=== PATIENT | female | born 1950 | race Caucasian/White ===

== ENCOUNTER 2018-02-05 08:39 | Outpatient (REF) | payer MEDICARE, BC, SELFPAY ==
[2018-02-05 12:58] LABS: ALT 22 U/L (12-78); AST 7 U/L (15-37); Albumin 3.7 g/dL (3.4-5.0); Alkaline Phosphatase 89 U/L (46-116); Bilirubin, Total 0.5 mg/dL (0.2-1.0); Cholesterol 151 mg/dL (50-200); HDL Cholesterol 59 mg/dL (40-60); LDL CHOLESTEROL 86 mg/dL (<100); Total Protein 6.5 g/dL (6.4-8.2); Triglyceride 49 mg/dL (30-150)
[2018-02-05 13:14] LABS: Bilirubin, Direct 0.12 mg/dL (0.00-0.20)
== END 2018-02-05 08:40 ==
LOC: NCHCN 08:39
PROVIDERS: Visit Provider Family Medicine
DX: E78.5 Hyperlipidemia, unspecified (principal)
CPT/HCPCS: 80061; 80076; 83721

== ENCOUNTER 2018-10-26 08:32 | Outpatient (REF) | payer MEDICARE, BC, SELFPAY ==
[2018-10-26 13:01] LABS: ALT 22 U/L (12-78); AST 9 U/L (15-37); Albumin 3.7 g/dL (3.4-5.0); Alkaline Phosphatase 87 U/L (46-116); Anion Gap 10.9 mmol/L (3-11); BUN 18 mg/dL (7-18); Bilirubin, Total 0.6 mg/dL (0.2-1.0); CO2 27.1 mmol/L (21.0-32.0); CREATININE 0.57 mg/dL (0.55-1.02); Calcium 8.8 mg/dL (8.5-10.1); Chloride 103 mmol/L (98-107); Cholesterol 147 mg/dL (50-200); Glucose 101 mg/dL (70-100); HDL Cholesterol 52 mg/dL (40-60); LDL CHOLESTEROL 82 mg/dL (<100); Potassium 4.4 mmol/L (3.5-5.1); Sodium 141 mmol/L (136-145); Total Protein 6.6 g/dL (6.4-8.2); Triglyceride 58 mg/dL (30-150)
== END 2018-10-26 08:52 ==
LOC: NCHCN 08:32
PROVIDERS: Visit Provider Family Medicine
DX: E78.5 Hyperlipidemia, unspecified (principal); I10 Essential (primary) hypertension
CPT/HCPCS: 80053; 80061; 83721

== ENCOUNTER 2018-11-03 09:59 | Outpatient (REF) | payer MEDICARE, BC, SELFPAY ==
--- NOTE | 2018-11-03 09:40 | PAPFT_PTH ---
PATIENT: Zoe Yuen LOC: [facility] U#:[id number] AGE/SX: 68/F ROOM: RE11/03/[address]: Theresa Herrera : 1950 BED: DIS: 11/03/2018 SPEC #: [id number] RECD: 11/03/18 12:57 STATUS: MARCO REBrittany #: [id number] TOBY: 11/03/18 09:[address]: Theresa Herrera DEPT: [facility] Cytology RECD BY: Sharri Walters ENTERED: 11/03/18 12:57 SP TYPE: PAPFT OTHR DR: Delfina Brown Tissues: 1 - CX/ENDOCX FOR PAP SMEARS Procedures: PAP THIN PREP/UVM Screening HPV DNA PROBE Comments: [id number]
== END 2018-11-03 10:19 ==
LOC: NCHCN 09:59
PROVIDERS: Visit Provider Family Medicine
DX: Z12.4 Encounter for screening for malignant neoplasm of cervix (principal); Z11.51 Encounter for screening for human papillomavirus (HPV)
CPT/HCPCS: 88142; 87624

== ENCOUNTER 2019-04-01 13:14 | Outpatient (REF) | payer MEDICARE, BC, SELFPAY ==
[2019-04-01 21:51] LABS: Anion Gap 8.4 mmol/L (3-11); BUN 19 mg/dL (7-18); CO2 27.6 mmol/L (21.0-32.0); CREATININE 0.71 mg/dL (0.55-1.02); Calcium 9.1 mg/dL (8.5-10.1); Chloride 105 mmol/L (98-107); Glucose 89 mg/dL (70-100); Potassium 4.7 mmol/L (3.5-5.1); Sodium 141 mmol/L (136-145); TSH (W/Ref FT4) 0.27 uIU/mL (0.36-3.74)
[2019-04-01 23:02] LABS: FREE T4 1.57 ng/dL (0.76-1.46); Vitamin B12 < 80 pg/mL (193-986)
== END 2019-04-01 13:34 ==
LOC: NCHCN 13:14
PROVIDERS: PCP Internal Medicine; Visit Provider Internal Medicine
DX: E03.9 Hypothyroidism, unspecified (principal); I10 Essential (primary) hypertension; K14.0 Glossitis; J45.20 Mild intermittent asthma, uncomplicated
CPT/HCPCS: 80048; 82607; 84439; 84443

== ENCOUNTER 2019-05-17 21:47 | Outpatient (REF) | payer MEDICARE, BC, SELFPAY ==
[2019-05-17 22:26] LABS: T4 12.9 ug/mL (4.7-13.3); TSH 0.66 uIU/mL (0.36-3.74); Vitamin B12 276 pg/mL (193-986)
== END 2019-05-17 22:07 ==
LOC: NCHCN 21:47
PROVIDERS: PCP Internal Medicine; Visit Provider Internal Medicine
DX: E53.8 Deficiency of other specified B group vitamins (principal); E03.9 Hypothyroidism, unspecified
CPT/HCPCS: 82607; 84436; 84443

== ENCOUNTER → 2019-05-23 09:45 | Outpatient (BNVA) | payer MEDICARE, BC, SELFPAY | PROVIDERS: PCP Internal Medicine; Referring Provider Internal Medicine; Visit Provider Surgery | DX: L57.0 Actinic keratosis (principal); I10 Essential (primary) hypertension | CPT/HCPCS: 11311; 99201; 99212 ==

== ENCOUNTER 2019-05-23 10:53 | Outpatient (REF) | payer MEDICARE, BC, SELFPAY ==
--- NOTE | 2019-05-23 10:10 | SKI_PTH ---
PATIENT: Zoe Yuen LOC: [facility] U#:[id number] AGE/SX: 68/F ROOM: RE05/23/[address]: Nasima Strong MD : 1950 BED: DIS: 05/23/2019 SPEC #: [id number] RECD: 05/23/19 12:41 STATUS: MARCO REBrittany #: [id number] TOBY: 05/23/19 10:[address]: Nasima Strong DEPT: Surgical Specimen RECD BY: Sharri Walters ENTERED: 05/23/19 12:42 SP TYPE: PAR[place] RED DR: Sai Plunkett Tissues: 1 - SKIN BIOPSY(SHAVE/PUNCH) Procedures: SKIN LEVEL 4 Comments: [id number]
== END 2019-05-23 11:13 ==
LOC: LBN 10:53
PROVIDERS: PCP Internal Medicine; Visit Provider Surgery
DX: L57.0 Actinic keratosis (principal); L82.1 Other seborrheic keratosis
CPT/HCPCS: 88305

== ENCOUNTER 2019-11-09 11:57 | Outpatient (REF) | payer MEDICARE, BC, SELFPAY ==
--- NOTE | 2019-11-09 10:00 | PAPFT_PTH ---
PATIENT: Zoe Yuen LOC: [facility]#:[id number] AGE/SX: 69/F ROOM: RE11/09/[address]: Delfina Brown : 1950 BED: DIS: 11/09/2019 SPEC #: [id number] RECD: 11/10/19 13:14 STATUS: MARCO REBrittany #: [id number] TOBY: 11/09/19 10:[address]: Delfina Brown DEPT: [facility] Cytology RECD BY: Sharri Walters ENTERED: 11/10/19 13:14 SP TYPE: PAPFT OTHR DR: Sai Plunkett Tissues: 1 - CX/ENDOCX FOR PAP SMEARS Procedures: PAP THIN PREP/UVM Screening HPV DNA PROBE Comments: [id number]
[2019-11-09 22:11] LABS: Anion Gap 5.6 mmol/L (3-11); BUN 17 mg/dL (7-18); CO2 30.4 mmol/L (21.0-32.0); CREATININE 0.74 mg/dL (0.55-1.02); Calcium 9.4 mg/dL (8.5-10.1); Calculated LDL 80 mg/dL (<100); Chloride 104 mmol/L (98-107); Cholesterol 150 mg/dL (<200); Glucose 97 mg/dL (74-106); HDL Cholesterol 54 mg/dL (40-60); Potassium 4.7 mmol/L (3.5-5.1); Sodium 140 mmol/L (136-145); TSH (W/Ref FT4) 0.67 uIU/mL (0.36-3.74); Triglyceride 82 mg/dL (<150); Vitamin B12 294 pg/mL (193-986)
== END 2019-11-09 12:17 ==
LOC: NCHCN 11:57
PROVIDERS: PCP Internal Medicine
DX: I10 Essential (primary) hypertension (principal); E03.9 Hypothyroidism, unspecified; E78.5 Hyperlipidemia, unspecified; E53.8 Deficiency of other specified B group vitamins; Z12.4 Encounter for screening for malignant neoplasm of cervix; Z11.51 Encounter for screening for human papillomavirus (HPV)
CPT/HCPCS: 80048; 80061; 88142; 82607; 84443; 87624

== ENCOUNTER 2019-11-29 00:38 | Outpatient (CLI) | payer MEDICARE, BC, SELFPAY ==
--- NOTE | 2019-11-29 12:45 | DI.MAMMO_ITS ---
EXAM: MG MAMMO SCREENING CLINICAL HISTORY: SCREENING, Z12.31 TECHNIQUE: Mammograms were interpreted according to the usual protocol including computer analysis w [employer] CAD system, tomosynthesis and C-view imaging. COMPARISON: FINDINGS: The breasts are of moderate density with fairly symmetrical distribution of fibroglandular tissue. N o dominant mass or clumped microcalcification is identified in either breast. The current examinatio n is compared with previous examinations including November 2017 and there has been no gross interval yanet nge in appearance in comparison with the prior studies. IMPRESSION: No specific evidence of malignancy at this time. Routine screening examinations are suggested at yea rly intervals in this age group according to the ACS ACR guidelines. BI-RADS Cat 1 - Negative: Breast Density - Category B - Scattered areas of fibroglandular density
== END 2019-11-29 00:58 ==
PROVIDERS: PCP Internal Medicine
DX: Z12.31 Encounter for screening mammogram for malignant neoplasm of breast (principal)
CPT/HCPCS: 77063; 77067

== ENCOUNTER 2020-11-07 09:33 | Outpatient (REF) | payer MEDICARE, BC, SELFPAY ==
--- NOTE | 2020-11-07 09:20 | PAPFT_PTH ---
PATIENT: Zoe Yuen LOC: [facility]#:[id number] AGE/SX: 70/F ROOM: RE11/07/[address]: Delfina Brown : 1950 BED: DIS: 11/07/2020 SPEC #: [id number] RECD: 11/07/20 12:51 STATUS: MARCO COOLEY #: [id number] TOBY: 11/07/20 09:[address]: Delfina Brown DEPT: [facility] Cytology RECD BY: Sharri Walters ENTERED: 11/07/20 12:52 SP TYPE: PAPFT OTHR DR: Sai Plunkett Tissues: 1 - CX/ENDOCX FOR PAP SMEARS Procedures: PAP THIN PREP/UVM Screening HPV DNA PROBE Comments: [id number]
== END 2020-11-07 09:34 | disposition home or self-care (01) ==
LOC: NCHCN 09:33
PROVIDERS: PCP Internal Medicine
DX: Z12.4 Encounter for screening for malignant neoplasm of cervix (principal); Z01.419 Encounter for gynecological examination (general) (routine) without abnormal findings; Z87.42 Personal history of other diseases of the female genital tract; Z11.51 Encounter for screening for human papillomavirus (HPV); R87.810 Cervical high risk human papillomavirus (HPV) DNA test positive
CPT/HCPCS: 88142; 87624

== ENCOUNTER 2020-11-09 09:43 | Outpatient (REF) | payer MEDICARE, BC, SELFPAY ==
[2020-11-09 13:43] LABS: Anion Gap 9.5 mmol/L (3-11); BUN 23 mg/dL (7-18); CO2 26.5 mmol/L (21.0-32.0); CREATININE 0.7 mg/dL (0.55-1.02); Calcium 9.3 mg/dL (8.5-10.1); Calculated LDL 84 mg/dL (<100); Chloride 105 mmol/L (98-107); Cholesterol 158 mg/dL (<200); Glucose 106 mg/dL (74-106); HDL Cholesterol 63 mg/dL (40-60); Potassium 4.8 mmol/L (3.5-5.1); Sodium 141 mmol/L (136-145); TSH (W/Ref FT4) 0.13 uIU/mL (0.36-3.74); Triglyceride 55 mg/dL (<150); Vitamin B12 477 pg/mL (193-986)
== END 2020-11-09 09:44 | disposition home or self-care (01) ==
LOC: NCHCN 09:43
PROVIDERS: PCP Internal Medicine
DX: E53.8 Deficiency of other specified B group vitamins (principal); I10 Essential (primary) hypertension
CPT/HCPCS: 80048; 80061; 82607; 84439; 84443

== ENCOUNTER 2020-11-30 04:18 | Outpatient (CLI) | payer MEDICARE, BC, SELFPAY ==
--- NOTE | 2020-11-30 | DI.MAMMO_ITS ---
Exam(s) MAMMO SCREENING EXAM: MAMMO SCREENING CLINICAL HISTORY: SCREENING, Z12.31 TECHNIQUE: Mammograms were interpreted according to the usual protocol including computer analysis w [employer] CAD system, tomosynthesis and C-view imaging. COMPARISON: 2011 through 2019 FINDINGS: The breasts are composed of scattered fibroglandular densities, Breast Density category B. No suspicious masses or suspicious microcalcifications are seen. No skin thickening or abnormal axillary lymph nodes are seen. There has been no significant change from prior exams. IMPRESSION: BI-RADS Category 1, Negative mammogram Yearly screening mammography is recommended. Breast Density - Category B, scattered fibroglandular densities. A negative radiographic report should not delay biopsy if a dominant or clinically suspicious mass is present. Up to ten percent of cancers are not identified on mammography. A negative report may reinforce clinical impression. Adenosis and dense breasts may obscure an underlying neoplasm. False positive reports average 6 to 10%. Patient will receive a letter notifying them of these results.
== END 2020-11-30 04:38 ==
PROVIDERS: PCP Internal Medicine
DX: Z12.31 Encounter for screening mammogram for malignant neoplasm of breast (principal); R92.8 Other abnormal and inconclusive findings on diagnostic imaging of breast
CPT/HCPCS: 77063; 77067

== ENCOUNTER 2020-12-17 15:10 | Outpatient (REF) | payer MEDICARE, BC, SELFPAY ==
--- NOTE | 2020-12-17 14:15 | ENDO_PTH ---
PATIENT: Zoe Yuen LOC: [facility] U#:[id number] AGE/SX: 70/F ROOM: RE12/17/[address]: Charla Rowell : 1950 BED: DIS: 12/17/2020 SPEC #: [id number] RECD: 12/17/20 16:33 STATUS: MARCO REBrittany #: [id number] TOBY: 12/17/20 14:[address]: Charla Rowell DEPT: Surgical Specimen RECD BY: Sharri Walters ENTERED: 12/17/20 16:33 SP TYPE: Endo OTHR DR: Sai Plunkett Tissues: 1 - ENDOCERVICAL BX/CURRETTE Procedures: GROSS AND MICRO LEVEL 4 Comments: [id number]
== END 2020-12-17 15:11 | disposition home or self-care (01) ==
LOC: LBN 15:10
PROVIDERS: PCP Internal Medicine; Visit Provider Obstetrics & Gynecology Gynecology
DX: R87.810 Cervical high risk human papillomavirus (HPV) DNA test positive (principal); N72 Inflammatory disease of cervix uteri
CPT/HCPCS: 88305

== ENCOUNTER 2020-12-24 12:26 | Outpatient (REF) | payer MEDICARE, BC, SELFPAY ==
[2020-12-24 16:02] LABS: FREE T4 1.54 ng/dL (0.76-1.46); TSH 0.25 uIU/mL (0.36-3.74)
== END 2020-12-24 12:27 | disposition home or self-care (01) ==
LOC: NCHCN 12:26
PROVIDERS: PCP Internal Medicine; Visit Provider Internal Medicine
DX: E03.9 Hypothyroidism, unspecified (principal)
CPT/HCPCS: 84439; 84443

== ENCOUNTER 2021-02-04 08:45 | Outpatient (REF) | payer MEDICARE, BC, SELFPAY ==
[2021-02-04 16:04] LABS: TSH 2.85 uIU/mL (0.36-3.74)
== END 2021-02-04 08:46 | disposition home or self-care (01) ==
LOC: NCHCN 08:45
PROVIDERS: PCP Internal Medicine; Visit Provider Internal Medicine
DX: E03.9 Hypothyroidism, unspecified (principal)
CPT/HCPCS: 84439; 84443

== ENCOUNTER 2021-11-20 15:49 | Outpatient (REF) | payer MEDICARE, SELFPAY ==
[2021-11-20 14:55] LABS: Anion Gap 5.7 mmol/L (3-11); BUN 25 mg/dL (7-18); CO2 30.3 mmol/L (21.0-32.0); CREATININE 0.8 mg/dL (0.55-1.02); Calcium 9.1 mg/dL (8.5-10.1); Chloride 105 mmol/L (98-107); Glucose 105 mg/dL (74-106); Potassium 5.2 mmol/L (3.5-5.1); Sodium 141 mmol/L (136-145); TSH (W/Ref FT4) 1.98 uIU/mL (0.36-3.74)
== END 2021-11-20 15:50 | disposition home or self-care (01) ==
LOC: NCHCN 15:49
PROVIDERS: PCP Internal Medicine; Visit Provider Family Medicine
DX: I10 Essential (primary) hypertension (principal); E78.5 Hyperlipidemia, unspecified; E03.9 Hypothyroidism, unspecified
CPT/HCPCS: 80048; 84443

== ENCOUNTER 2022-02-20 16:04 | Outpatient (REF) | payer MEDICARE, SELFPAY ==
--- NOTE | 2022-02-20 14:30 | ENDO_PTH ---
PATIENT: Zoe Yuen LOC: [facility] U#:[id number] AGE/SX: 71/F ROOM: RE02/20/[address]: Charla Rowell : 1950 BED: DIS: 02/20/2022 SPEC #: [id number] RECD: 02/20/22 18:19 STATUS: MARCO REBrittany #: [id number] TOBY: 02/20/22 14:[address]: Charla Rowell DEPT: Surgical Specimen RECD BY: Sharri Walters ENTERED: 02/20/22 18:20 SP TYPE: Endo OTHR DR: Sai Plunkett Tissues: 1 - ENDOCERVICAL BX/CURRETTE Procedures: GROSS AND MICRO LEVEL 4 IMMUNOPEROXIDASE STAIN P16 IPEX Comments: [id number]
== END 2022-02-20 16:05 | disposition home or self-care (01) ==
LOC: LBN 16:04
PROVIDERS: PCP Internal Medicine; Visit Provider Obstetrics & Gynecology Gynecology
DX: Z86.19 Personal history of other infectious and parasitic diseases (principal)
CPT/HCPCS: 88305; 88342; 88361

== ENCOUNTER → 2022-03-18 02:29 | Outpatient (CLI) | payer MEDICARE, SELFPAY ==
--- NOTE | 2022-03-18 07:00 | DI.MAMMO_ITS ---
Exam(s) MAMMO SCREENING EXAM: MAMMO SCREENING CLINICAL HISTORY: screening,z12.39 TECHNIQUE: Bilateral full field digital CC and MLO mammographic images were obtained with 3D tomosyn thesis and utilizing computer aided detection (CAD). COMPARISON: Available for comparison. FINDINGS: Masses/Architectural Distortion: None seen. Microcalcifications: No suspicious pleomorphic-type are seen. Skin Thickening/Nipple Retraction: None. IMPRESSION: 1. No significant interval change with no specific features of malignancy noted. 2. Unless there is more urgent need, screening mammography is recommended, as per [employer] guidelines. BI-RADS Category 1 - Negative Breast Density - Category B - Scattered areas of fibroglandular density Breast density category C or D implies that the patient has dense breast tissue. Dense breast tissue is very common and is not abnormal but dense breast tissue can make it harder to find cancer on a ma mmogram. Also, dense breast tissue may increase their breast cancer risk. This information about the result of the mammogram report was provided to the patient to raise their awareness. Use this report when you speak with the patient about their risks for breast cancer, which includes their family hist ory. At that time, you may recommend for more screening tests (Ultrasound or MRI) as they might be us eful based on their risk. A negative radiographic report should not delay biopsy if a dominant or clinically suspicious mass is present. Up to ten percent of cancers are not identified on mammography. A negative report may reinforce clinical impression. Adenosis and dense breasts may obscure an underlying neoplasm. False positive reports average 6 to 10%. Patient will receive a letter notifying them of these results.
== END ==
PROVIDERS: PCP Internal Medicine; Visit Provider Obstetrics & Gynecology Gynecology
DX: Z12.31 Encounter for screening mammogram for malignant neoplasm of breast (principal)
CPT/HCPCS: 77063; 77067

== ENCOUNTER 2022-12-08 16:02 | Outpatient (REF) | payer MEDICARE, SELFPAY ==
[2022-12-08 23:41] LABS: ALT 23 U/L (14-59); AST 10 U/L (15-37); Albumin 4.1 g/dL (3.4-5.0); Alkaline Phosphatase 82 U/L (46-116); Anion Gap 7.5 mmol/L (3-11); BUN 17 mg/dL (7-18); Bilirubin, Total 0.4 mg/dL (0.2-1.0); CO2 29.5 mmol/L (21.0-32.0); CREATININE 0.7 mg/dL (0.55-1.02); Calcium 9.3 mg/dL (8.5-10.1); Chloride 104 mmol/L (98-107); Estimated GFR 92.41 (mL/min/1.73m2); Glucose 87 mg/dL (74-106); Potassium 3.9 mmol/L (3.5-5.1); Sodium 141 mmol/L (136-145); TSH (W/Ref FT4) 2.87 uIU/mL (0.36-3.74); Total Protein 7.4 g/dL (6.4-8.2)
== END 2022-12-08 16:03 | disposition home or self-care (01) ==
LOC: NCHCN 16:02
PROVIDERS: PCP Internal Medicine; Visit Provider Family Medicine
DX: Z00.00 Encounter for general adult medical examination without abnormal findings (principal); E03.9 Hypothyroidism, unspecified; I10 Essential (primary) hypertension
CPT/HCPCS: 80053; 84443

== ENCOUNTER → 2023-11-16 16:41 | Outpatient (CLI) | payer MEDICARE, SELFPAY ==
--- NOTE | 2023-11-16 | DI.RAD_ITS ---
Exam(s) XR KNEE LT 3V AP,LAT,DELROY EXAM: XR KNEE LT 3V AP,LAT,DELROY CLINICAL HISTORY: M25.562 Pain in left knee, With Weight bearing View. TECHNIQUE: 2D digital imaging was performed. COMPARISON: No exams were available for comparison FINDINGS: 3 views There is no evidence of fracture nor obvious joint effusion. However, there is abnormal density in t he anterior intra-articular Hoffa fat pad subjacent to the patella. This exhibits outward bowing den sity. There are mild degenerative changes in the medial lateral compartments. There is also a loose intra- articular body at the mid aspect of the joint measuring 6 x 5 mm. Fabella is noted posterolaterally. IMPRESSION: Some degenerative change. 6 x 5 mm loose intra-articular body. Abnormal density in the Hoffa fat pad below the level of the patella. Recommend follow-up MRI. DATA REPOSITORY: RADIATION DOSE DELIVERED:
== END ==
PROVIDERS: PCP Internal Medicine; Visit Provider Family Medicine
DX: M25.562 Pain in left knee (principal); M23.42 Loose body in knee, left knee; M22.8X2 Other disorders of patella, left knee
CPT/HCPCS: 73562

== ENCOUNTER → 2023-12-01 02:12 | Outpatient (CLI) | payer MEDICARE, SELFPAY ==
--- NOTE | 2023-12-01 | DI.MRI_ITS ---
Exam(s) MR LOWER JOINT LT WO EXAM: MR LOWER JOINT LT WO CLINICAL HISTORY: PAIN IN L KNEE, M25.562. TECHNIQUE: Multiplanar multisequence MRI was performed. COMPARISON: CR XR KNEE LT 3V AP,LAT,DELROY from 11/16/2023 FINDINGS: BONES: There is no fracture or contusion pattern. JOINTS: A moderate-sized joint effusion is present. 6 millimeter loose body seen in anterior femora l tibial joint space, anterior to the tibial spine. Multiloculated synovial cyst versus ganglion not ed posterior to the posterior cruciate ligament. Articular cartilage: Patellofemoral joint: Severe thinning of the cartilage the lateral patellar sec, extending down to b one. Periarticular spurring. Medial femoral tibial joint: Severe thinning of cartilage extending down to involving underlying bon e. High signal in the marrow. Prominent spurring. High signal in the medial tibial plateau. Lateral femoral tibial joint: Filler cartilage thinning. Two small cystic changes in the lateral fe moral condyle. TENDONS: Extensor mechanism: Unremarkable. Medial retinaculum: Unremarkable. Lateral retinaculum: Unremarkable. Popliteus: Unremarkable. MUSCLES: Unremarkable. MENISCI: Both menisci are peripherally displaced consistent with degenerative changes. Abnormal and amorphous increased signal in the bodies and posterior horns. The findings are greater in the posterior horn of the medial meniscus and the body of the lateral meniscus. No superimposed tear is in these locat ions. SOFT TISSUES: Multiloculated Ruiz's cyst. LIGAMENTS: Anterior Cruciate: Unremarkable. Posterior Cruciate: Unremarkable. Medial Collateral:Unremarkable. Lateral Collateral: Unremarkable. IMPRESSION: Joint effusion. Loose body and anterior femoral tibial joint. Severe degenerative changes of the patellofemoral joint and medial femoral tibial joint, grade 4 driss dromalacia. Severe degenerative changes of both menisci. Question superimposed tear in the posterior of medial m eniscus and body of the lateral meniscus. DATA REPOSITORY:
== END ==
PROVIDERS: PCP Internal Medicine; Visit Provider Family Medicine
DX: M25.562 Pain in left knee (principal); M23.42 Loose body in knee, left knee; M22.42 Chondromalacia patellae, left knee
CPT/HCPCS: 73721

== ENCOUNTER → 2023-12-21 10:18 | Outpatient (BNVA) | payer MEDICARE, SELFPAY | PROVIDERS: PCP Internal Medicine; Referring Provider Internal Medicine | DX: M17.12 Unilateral primary osteoarthritis, left knee (principal) | CPT/HCPCS: 20610; 99203; J1010 ==

== ENCOUNTER 2024-01-04 15:51 | Outpatient (REF) | payer MEDICARE, SELFPAY ==
[2024-01-04 15:08] LABS: ALT 24 U/L (14-59); AST 7 U/L (15-37); Albumin 4.1 g/dL (3.4-5.0); Alkaline Phosphatase 85 U/L (46-116); Anion Gap 6.4 mmol/L (3-11); BUN 20 mg/dL (7-18); Bilirubin, Total 0.61 mg/dL (0.2-1.0); CO2 30.6 mmol/L (21.0-32.0); CREATININE 0.8 mg/dL (0.55-1.02); Calcium 9.6 mg/dL (8.5-10.1); Calculated LDL 74 mg/dL (<100); Chloride 103 mmol/L (98-107); Cholesterol 166 mg/dL (<200); Estimated GFR 78.24 (mL/min/1.73m2); Glucose 107 mg/dL (74-106); HDL Cholesterol 76 mg/dL (40-60); Potassium 5.3 mmol/L (3.5-5.1); Sodium 140 mmol/L (136-145); Triglyceride 81 mg/dL (<150)
[2024-01-04 15:11] LABS: TSH (W/Ref FT4) 0.99 uIU/mL (0.36-3.74)
== END 2024-01-04 15:52 | disposition home or self-care (01) ==
LOC: NCHCN 15:51
PROVIDERS: PCP Family Medicine; Visit Provider Family Medicine
DX: E03.9 Hypothyroidism, unspecified (principal); I10 Essential (primary) hypertension
CPT/HCPCS: 80053; 80061; 84443

== ENCOUNTER 2024-01-29 00:10 | Outpatient (CLI) | payer MEDICARE, SELFPAY ==
--- NOTE | 2024-01-29 | DI.MAMMO_ITS ---
Exam(s) MAMMO SCREENING EXAM: MAMMO SCREENING CLINICAL HISTORY: SCREENING,ADULT EXAM, Z00.00 TECHNIQUE: Mammograms were interpreted according to the usual protocol including computer analysis w [employer] CAD system, tomosynthesis and C-view imaging. COMPARISON: 2014 through 2021 FINDINGS: The breasts are composed of mainly fatty density , Breast Density category A. No suspicious masses or suspicious microcalcifications are seen. No skin thickening or abnormal axillary lymph nodes are seen. There has been no significant change from prior exams. IMPRESSION: BI-RADS Category 1, Negative mammogram Yearly screening mammography is recommended. Breast Density - Category A, fatty density. A negative radiographic report should not delay biopsy if a dominant or clinically suspicious mass is present. Up to ten percent of cancers are not identified on mammography. A negative report may reinforce clinical impression. Adenosis and dense breasts may obscure an underlying neoplasm. False positive reports average 6 to 10%. Patient will receive a letter notifying them of these results.
== END 2024-01-29 00:30 ==
LOC: DI 00:10
PROVIDERS: PCP Family Medicine; Visit Provider Family Medicine
DX: Z12.31 Encounter for screening mammogram for malignant neoplasm of breast (principal)
CPT/HCPCS: 77063; 77067

== ENCOUNTER 2024-03-15 11:24 | Outpatient (REF) | payer MEDICARE, SELFPAY ==
--- NOTE | 2024-03-15 11:30 | PAPFT_PTH ---
PATIENT: Zoe Yuen LOC: [facility] U#:[id number] AGE/SX: 73/F ROOM: RE03/15/[address]: Charla Rowell : 1950 BED: DIS: 03/15/2024 SPEC #: [id number] RECD: 03/15/24 12:57 STATUS: MARCO REQ #: [id number] TOBY: 03/15/24 11:[address]: Charla Rowell DEPT: [facility] Cytology RECD BY: Sharri Walters ENTERED: 03/15/24 12:58 SP TYPE: PAPFT OTHR DR: Toby Harris Tissues: 1 - CX/ENDOCX FOR PAP SMEARS Procedures: PAP THIN PREP/UVM Screening HPV DNA PROBE Comments: [id number] (HPV 16 & 18/45)
== END 2024-03-15 11:25 | disposition home or self-care (01) ==
LOC: LBN 11:24
PROVIDERS: PCP Family Medicine; Visit Provider Obstetrics & Gynecology Gynecology
DX: Z12.4 Encounter for screening for malignant neoplasm of cervix (principal); R87.628 Other abnormal cytological findings on specimens from vagina
CPT/HCPCS: 88142; 87624

== ENCOUNTER → 2024-03-21 10:12 | Outpatient (BNVA) | payer MEDICARE, SELFPAY | PROVIDERS: PCP Family Medicine; Referring Provider Internal Medicine; Visit Provider Student in an Organized Health Care Education/Training Program | DX: M17.12 Unilateral primary osteoarthritis, left knee (principal) | CPT/HCPCS: 99213 ==

== ENCOUNTER → 2024-06-06 14:27 | Outpatient (BNVA) | payer MEDICARE, SELFPAY | PROVIDERS: PCP Family Medicine; Referring Provider Family Medicine; Visit Provider Student in an Organized Health Care Education/Training Program | DX: M17.12 Unilateral primary osteoarthritis, left knee (principal) | CPT/HCPCS: 20610; J1010 ==

== ENCOUNTER 2024-10-07 02:50 | Outpatient (CLI) | payer MEDICARE, SELFPAY ==
[2024-10-07 10:42] LABS: HCT 43.4 % (36.0-46.0); HGB 14.2 g/dL (11.2-15.7); MCH 30.4 pg (27.0-33.0); MCHC 32.7 % (32.0-36.0); MCV 93 fL (80-95); Platelet Count 351 10^3/uL (130-400); RBC 4.67 10^6/uL (3.93-5.22); RDW 13.1 % (11.7-14.6); RDW-SD 44.4 fL; WBC 4.94 10^3/uL (4.4-10.8)
[2024-10-07 11:21] LABS: Anion Gap 8.1 mmol/L (3-11); BUN 23 mg/dL (7-18); CO2 29.9 mmol/L (21.0-32.0); CREATININE 0.8 mg/dL (0.55-1.02); Calcium 9.5 mg/dL (8.5-10.1); Chloride 102 mmol/L (98-107); Estimated GFR 77.75 (mL/min/1.73m2); Glucose 107 mg/dL (74-106); Potassium 4.2 mmol/L (3.5-5.1); Sodium 140 mmol/L (136-145)
== END 2024-10-07 02:51 | disposition home or self-care (01) ==
LOC: LBO 02:50
PROVIDERS: PCP Family Medicine; Visit Provider Student in an Organized Health Care Education/Training Program
DX: Z01.818 Encounter for other preprocedural examination (principal); M17.12 Unilateral primary osteoarthritis, left knee
CPT/HCPCS: 36415; 80048; 85027; 99024

== ENCOUNTER 2024-10-07 09:08 | Outpatient (CLI) | payer MEDICARE, SELFPAY ==
--- NOTE | 2024-10-07 08:12 | DI.RAD_ITS ---
Exam(s) XR KNEE LT 1V XR STANDING ALIGNMENT EXAM: XR STANDING ALIGNMENT CLINICAL HISTORY: OA L KNEE. TECHNIQUE: 2D digital imaging was performed. Standing AP views were performed from the pelvis throu gh the ankles. COMPARISON: CR XR KNEE LT 3V AP,LAT,DELROY from 11/16/2023 CR XR KNEE LT 1V from 10/07/2024 FINDINGS: BONES: No acute fracture is present. No bony destructive lesion is seen. Leg length discrepancy: No significant overall leg length discrepancy. JOINTS: Knees: Marked severe narrowing of the medial femoral tibial joint space the left knee this ap pears to have progressed compared with the previous exam. The patellofemoral joint also set degenera tive changes. A loose body again noted near the level of the tibial spines. The right knee shows pe riarticular spurring but no significant joint space narrowing. The ankle joints are unremarkable. The hip joints are unremarkable. SOFT TISSUE: Normal. IMPRESSION: Advanced degenerative changes of the medial femoral tibial joint of the left knee. No significant leg length discrepancy. DATA REPOSITORY: RADIATION DOSE DELIVERED:
== END 2024-10-07 09:09 | disposition home or self-care (01) ==
PROVIDERS: PCP Family Medicine; Visit Provider Physician Assistant
DX: M17.12 Unilateral primary osteoarthritis, left knee (principal); Z01.818 Encounter for other preprocedural examination
CPT/HCPCS: 73560; 77073

== ENCOUNTER 2024-10-18 07:04 | Day surgery (SDC) | payer MEDICARE, SELFPAY ==
[2024-10-18] VITALS (21 sets, daily range): BP systolic 107–147; BP diastolic 55–85; PULSE 74–92; RESP 9–18; TEMP 36–36.8; O2SAT 95–100; BMI 27.6
--- NOTE | 2024-10-18 06:31 | W.ANESPRE ---
General Info Date of Service Date Performed: 10/18/24 Height: 5 ft 4.75 in Weight: 74.843 kg Body Mass Index (BMI): 27.6 Surgical Procedure: Operation Date: 10/18/24 09:40 Proposed Procedure Side Surgeon p Knee Total Arthroplasty Left Khai Maya MD Meds Allergies and Home Medications Allergies Allergy/AdvReac Type Severity Reaction Status Date / Time amoxicillin Allergy Intermediate Hives Verified 10/18/24 07:21 ibuprofen Allergy Mild Hives on Verified 10/18/24 07:21 scalp Sulfa (Sulfonamide Allergy Unknown Other (See Verified 10/18/24 07:21 Antibiotics) Comment) Home Medication ?Medication ?Instructions ?Recorded fluticasone propionate 50 9.9 ml NS DAILY 10/14/16 mcg/actuation nasal spray,suspension (Flonase Allergy Relief) lisinopril 40 mg tablet 40 mg PO DAILY 10/14/16 albuterol sulfate 90 mcg/actuation 2 puff inhalation BID PRN 05/23/19 aerosol inhaler (ProAir HFA) atorvastatin 20 mg tablet 20 mg PO DAILY 05/23/19 levothyroxine 125 mcg tablet 112 mcg PO DAILY 10/23/21 cyanocobalamin (vitamin B-12) 1,000 mcg PO DAILY 03/15/24 1,000 mcg capsule acetaminophen 500 mg tablet 1,000 mg (2 x 500 mg) PO Q8H PRN 10/18/24 pain #90 tabs aspirin 81 mg tablet,delayed 81 mg PO BID 30 days #60 tabs 10/18/24 release celecoxib 200 mg capsule (Celebrex) 200 mg PO BID PRN #60 caps 10/18/24 dexamethasone 4 mg tablet 4 mg PO DAILY #2 tabs 10/18/24 docusate sodium 100 mg capsule 100 mg PO BID #28 caps 10/18/24 (Colace) gabapentin 300 mg capsule 300 mg PO QHS #14 caps 10/18/24 oxycodone 5 mg tablet 5 mg PO Q4H PRN #18 tabs 10/18/24 pantoprazole 40 mg tablet,delayed 40 mg PO DAILY #14 tabs 10/18/24 release Current Visit Medications: Current Medications Generic Name Dose Route Start Last Admin Trade Name Freq PRN Reason Stop Dose Admin Acetaminophen 1,000 mg 10/18/24 06:00 Acetaminophen 500 Mg Tab PO 10/18/24 23:59 PREOP ILANA Celecoxib 400 mg 10/18/24 06:00 Celecoxib 200 Mg Cap PO 10/18/24 23:59 PREOP ILANA Gabapentin 300 mg 10/18/24 06:00 Gabapentin 300 Mg Cap PO 10/18/24 23:59 PREOP ILANA Ringer's Solution 1,000 mls @ 80 mls/hr 10/18/24 06:00 IV 10/18/24 23:59 INFUSION ILANA Cefazolin Sodium/Dextrose 2 gm in 50 mls @ 100 mls/hr 10/18/24 06:00 Ancef Duplex IVPB 10/18/24 23:59 PREOP ILANA Tranexamic Acid/Sodium Chloride 1,000 mg in 100 mls @ 600 mls/hr 10/18/24 06:00 IVPB 10/18/24 23:59 PREOP ILANA IV Miscellaneous Supplies 1 each 10/18/24 06:00 Iv Access IV 10/18/24 23:59 DIRECTED ILANA Sodium Chloride 0 ml 10/18/24 06:00 Normal Saline Flush 10 Ml Syr IV 10/18/24 23:59 PRN PRN Sodium Chloride 0 ml 10/18/24 06:00 Normal Saline 10 Ml Vial IJ 10/18/24 23:59 DIRECTED PRN Sterile Water 0 ml 10/18/24 06:00 Water,Injection,Sterile 10 Ml Vial IJ 10/18/24 23:59 DIRECTED PRN PFSH Active Problems Active Problems: Problem Status Onset Code Osteoarthritis of left knee Chronic M17.12 Skin lesion of face Acute L98.9 Medical History Medical History 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 No dysplasia on colposcopy. 2019 NL Pap/negative HPV. 11/2020+ HR HPV. 12/2020 neg colpo biopsy. [place] [place] ASCUS with + HPV, - HPV 16, - HPV 18. Prolapse of female pelvic organs 10/2021 stage III rectocele stage II cystocele. Intermittent asthma Hyperlipidemia Hypothyroid Diverticulosis Hypertension Menopause DJD (degenerative joint disease) of cervical spine Vitamin B12 deficiency Surgical History Surgical History (Updated 10/18/24 @ 08:17 by Cora Child RN) Hx of cataract surgery H/O vaginal hysterectomy History of colposcopy with cervical biopsy 2014, 2016, 2020: Normal cervical biopsy. Tobacco Smoking/Tobacco Use Status: Never Passive smoking exposure: No Alcohol Alcohol Intake: current Alcohol intake frequency: a few times a week Alcohol type: wine Substance Use Substance use: Never Substance use type: does not use Prental History History 2 Para 2 Hx # Term Pregnancies 2 Multiple births Hx # Pregnancies Ectopic pregnancies AB induced Hx Number of Living Children 2 AB spontaneous Vital Signs and Lab Results Vital Signs Most Recent Vital Signs in EMR: Temp Pulse Resp BP Pulse Ox 36.8 C 92 H 16 145/85 H 99 10/18/24 07:22 10/18/24 07:22 10/18/24 07:22 10/18/24 07:22 10/18/24 07:22 Lab Results Blood Type / Crossmatch: No Data to Display Complete Blood Count: White Blood Count 4.94 10^3/uL (4.4-10.8) 10/07/24 10:20 Red Blood Count 4.67 10^6/uL (3.93-5.22) 10/07/24 10:20 Hemoglobin 14.2 g/dL (11.2-15.7) 10/07/24 10:20 Hematocrit 43.4 % (36.0-46.0) 10/07/24 10:20 Platelet Count 351 10^3/uL (130-400) 10/07/24 10:20 Complete Metabolic Panel: Sodium 140 mmol/L (136-145) 10/07/24 10:20 Potassium 4.2 mmol/L (3.5-5.1) 10/07/24 10:20 Chloride 102 mmol/L (98-107) 10/07/24 10:20 Carbon Dioxide 29.9 mmol/L (21.0-32.0) 10/07/24 10:20 BUN 23 mg/dL (7-18) H 10/07/24 10:20 Creatinine 0.8 mg/dL (0.55-1.02) 10/07/24 10:20 Est GFR (CKD-EPI 2020) 77.75 (mL/min/1.73m2) 10/07/24 10:20 Calcium 9.5 mg/dL (8.5-10.1) 10/07/24 10:20 Glucose 107 mg/dL (74-106) H 10/07/24 10:20 Liver Function Panel: No Data to Display Coagulation Panel: No Data to Display Cardiac Panel: No Data to Display Arterial Blood Gas: No Data to Display Venous Blood Gas: No Data to Display Pancreas Panel: No Data to Display Thyroid Panel: No Data to Display Infectious Disease: No Data to Display Blood Cultures: No Data to Display Toxicology Panel: No Data to Display Anesthesia Assessment and Plan Anesthesia History Personal History: No History of Anesthesia Complications Family History: No Family History of Anesthesia Complications Exercise Tolerance Exercise Tolerance: Metabolic Equivalents>4 Pertinent Negatives Pertinent Negatives: No Symptoms of GERD, No Major Cardiovascular Symptoms or Complaints and No History of CVA/TIA Cardiac & Pulmonary Exam Cardiac Exam: Normal S1/S2 Heart Sounds Pulmonary Exam: Clear Bilateral Breath Sounds Implantable Cardiac Device Does patient have a Pacemaker or an ICD?: No Airway Exam Known Difficult Airway: No Mallampati Class: 1 Mouth Opening: Normal (> 3cm) Thyromental Distance: Greater than 3 cm Neck Range of Motion: Full ROM Neck Circumference: Normal Teeth Condition: Normal Dentition ASA Classification ASA Score: ASA 2 Emergency Case?: No NPO Status NPO Status: NPO Clears >2 hours, Solids >8 hours Anesthesia Plan Resuscitation Status: Full Code Anesthesia Technique: Spinal Anesthesia Airway Planned: Natural Airway Pain Management: Surgeon and patient request nerve block Monitors Used: Standard Monitors Preoperative Comments:: 74 yo female for TKA. Sig PMHx: HTN (lisinopril), asthma (albuterol), hypothyroid (on replacement), c spine DJD. Never smoker, occ EtOH.
--- NOTE | 2024-10-18 07:22 | W.PM.DSUDISC ---
Date of service: 10/18/24 Discharge Plan Disposition Patient Disposition: Home Condition: Good Discharge Details Reason For Visit: Left knee DJD Attending Provider: Khai Maya Primary Care Provider: Toby Harris Home Meds and New Rx's Prescriptions: New acetaminophen 500 mg tablet 1,000 mg PO Q8H PRN Qty: 90 0RF Rx Instructions: Take two tablets up to every 8 hours as needed for pain celecoxib [Celebrex] 200 mg capsule 200 mg PO BID PRNQty: 60 0RF Rx Instructions: Take one tablet twice daily for pain and inflammation aspirin 81 mg tablet,delayed release (DR/EC) 81 mg PO BID 30 Days Qty: 60 0RF docusate sodium [Colace] 100 mg capsule 100 mg PO BID Qty: 28 0RF pantoprazole 40 mg tablet,delayed release (DR/EC) 40 mg PO DAILY Qty: 14 0RF dexamethasone 4 mg tablet 4 mg PO DAILY Qty: 2 0RF Rx Instructions: Take one tablet once daily for two days gabapentin 300 mg capsule 300 mg PO QHS Qty: 14 0RF Rx Instructions: Take one tablet at bedtime oxycodone 5 mg tablet 5 mg PO Q4H PRNQty: 18 0RF Rx Instructions: Take one tablet up to every 4 hours as needed for severe postoperative pain Continued atorvastatin 20 mg tablet 20 mg PO DAILY albuterol sulfate [ProAir HFA] 90 mcg/actuation HFA aerosol inhaler 2 puff IH BID PRN cyanocobalamin (vitamin B-12) 1,000 mcg capsule 1,000 mcg PO DAILY lisinopril 40 MG tablet 40 mg PO DAILY fluticasone propionate [Flonase Allergy Relief] 9.9 ML spray,suspension 9.9 ml NS DAILY levothyroxine 125 mcg tablet 112 mcg PO DAILY Patient Comments: Alternates every other day with 150 mcg Discharge Instructions Additional Instructions: Total Knee Discharge Instructions Activity: The most important activity is to walk and to work on gentle motion (both flexion and extension). You should try to take short walks a few times a day. It is important that when resting you work on keeping the knee straight. Avoid putting a pillow behind the knee as this will encourage flexion. Work on range of motion exercises as provided by Physical Therapy. - Start outpatient physical therapy within 2 weeks. - You should wear the KUSH hose on both legs for 2 weeks. You may remove these at night. You may also use any compression sock in place of the KUSH hose. - Utilize [employer] to review exercises, see videos on exercises and obtain basic information pertaining to your surgery and your recovery. Dressing: Remove the Tenzin wrap by 2 days after your surgery and put on the KUSH stocking given to you from the hospital. Keep the surgical dressing (underneath the TENZIN wrap) in place for at least one week. After the first week it may be removed and replaced with light gauze and tape or nothing. The wound and dressing may get wet after 3 days but avoid soaking the dressing or otherwise it will need to be changed. Many people prefer covering the dressing with cling wrap (saran wrap) to minimize it from getting soaked. If it gets wet, just pat dry. If it starts to peel off then it will need to be changed. Medications: - You should take Tylenol and anti-inflammatory Celebrex as your primary pain control medications. If the Celebrex is too expensive or not covered, please call the office for another alternative (Advil/Ibuprofen or Naproxen/Aleve) - You have been prescribed a stronger pain medication Oxycodone for breakthrough pain, take as needed as prescribed. - You have also been prescribed a stomach acid reduction agent Pantoprozole to help reduce stomach acid and reflux. - You have been prescribed Gabapentin to take at night for restlessness and nerve pain. - You will be taking Aspirin 81mg twice a day for DVT prevention unless instructed otherwise. - You have also been prescribed Decadron to take to control post-operative nausea and pain. You will start this tomorrow. - If you have constipation you should take Colace (which has been prescribed) or Miralax (which is now available [id number]). It takes most people 3-4 days to have a bowel movement. Follow-up: 2 weeks If you have any acute concerns or questions, please do not hesitate to contact the office at [phone]. You may contact Dr. Maya with any questions after hours through the hospital at [phone] or on his cell phone at [phone]. Stand Alone Forms: Anesthesia Discharge Inst., Anes.Nerve Block Instructions, [facility] [place] ([facility]) Referrals: Khai Maya MD [ [facility] STAFF PHYSICIAN] - 11/03/24 1:30 pm Equipment/Supplies: Walker Activity:: Elevate Remove Dressings/Wound Care:: Do Not Remove Shower/Bathe:: Cover Diet:: As Tolerated Discharge Orders Discharge Orders: Discharge Order (Routine); Ordered 10/18/24 Ordered By: Sidra Keys
[2024-10-18] MEDS: Acetaminophen 500 MG TAB 1000 MG PO (07:41)
[2024-10-18] MEDS: Celecoxib 200 MG CAP 400 MG PO (07:41)
[2024-10-18] MEDS: Gabapentin 300 MG CAP PO (07:41)
[2024-10-18] MEDS: Lactated Ringers 1,000 ML 80 ML IV (08:40)
--- NOTE | 2024-10-18 08:59 | W.ANESNERVE ---
Nerve Block Single Injection Procedure Date and Time Date Performed: 10/18/24 Procedure Start: 08:52 Location Where Procedure Performed Procedure Location: Day Surgery Unit Reason Performed: Postoperative Analgesia Requesting Provider: Khai Maya Timeout Performed Timeout Performed: Yes Monitoring Used ECG, Blood Pressure and SpO2 Sterility Sterility: Hand Hygiene, Surgical Cap, Surgical Mask, Sterile Gloves and Chlorhexidine Sedation Given During Procedure Sedation Given (Indicate Dose Given): Propofol IV Dose:: 25 mg Patient Mental Status Patient Mental Status: Sedate with meaningful communication Nerve Block 1st Nerve Block: Laterality: Left Block Type: Adductor Canal Ultrasound Image Saved?: Yes Needle / Catheter Used: 100mm SonoPlex II Local Anesthetic Bolus (Indicate Dose Given): Lidocaine used for local infiltration of skin and Bupivacaine 0.25% Dose:: 10 mL Additives (Indicate Dose Given): None Ultrasound: Sterile probe cover and gel used Nerve Stimulator: Supplement to Ultrasound use and No twitch or parasthesia noted < 0.5 mA (0.6) Paresthesia: None Procedure Tolerated: No Complications Procedure Outcome: Successful Performed By: Destin Curtis 2nd Nerve Block: Laterality: Left Block Type: Other (anterior femoral cutaneous ) Ultrasound Image Saved?: Yes Needle / Catheter Used: 100mm SonoPlex II Local Anesthetic Bolus (Indicate Dose Given): Bupivacaine 0.25% Dose:: 5 mL Additives (Indicate Dose Given): None Ultrasound: Sterile probe cover and gel used Nerve Stimulator: Supplement to Ultrasound use and No twitch or parasthesia noted < 0.5 mA Paresthesia: None Procedure Tolerated: No Complications Procedure Outcome: Successful Performed By: Destin Curtis
[2024-10-18] MEDS: ceFAZolin 2 GM/50 ML BAG IVPB (09:15)
[2024-10-18] MEDS: TRANEXAMIC ACID/SOD. CHL. 1,000 MG/100 ML BAG 600 MG IVPB (09:19)
--- NOTE | 2024-10-18 10:26 | W.PM.OP ---
Operative Note Operative Note PRE-OP DIAGNOSIS: Left Knee Osteoarthritis POST-OP DIAGNOSIS: same PROCEDURE: Left Total Knee Replacement SURGEON: Khai Maya CRUSHER SCREEN REPAIRER: Sidra Keys ANESTHESIA TYPE: Spinal Refer to Anesthesia Record ESTIMATED BLOOD LOSS: 50 PATHOLOGY: none sent TOURNIQUET TIME: 0 COMPLICATIONS: None Patient was transported to: PACU Patient's condition: stable Implants: 1. Depuy Attune Cementless Cruciate Retaining Femoral Component, Size 6 Narrow 2. Depuy Attune Cementless Fixed Bearing Tibial Component, Size 5 3. Depuy Attune 6x6mm CR/FB Poly Indications: I have seen Zoe in clinic for symptoms of knee arthritis, confirmed with radiographic findings. She has exhausted nonoperative methods and was having significant limitations in daily function and desired better function and less pain. I discussed the technical details of a knee replacement. I explained the risks of the procedure to include, but not limited to, bleeding, infection, pain, stiffness, fracture, damage to nerves and vessels, damage to muscles and tendons, loosening, need for repeat procedure, blood clot and cardiopulmonary demise. Despite these risks, Zoe elected to proceed. Findings: There was significant signs of arthritis throughout the knee. Procedure Description: Zoe was greeted in the preoperative holding area where the correct side was identified and marked. The consent was reviewed with the patient and signed. The history and physical was updated. All questions were answered. Preoperative medications were administered: Acetaminophen 1000mg, Celebrex 400mg, and Gabapentin 300mg. An adductor canal block was then administered by the anesthesia team in the D[facility]. She was taken back to the operating room. A spinal anesthestic was then administered. The patient was placed into the supine position on the operating room table. Posts were placed for positioning during the procedure. All bony prominences were well padded. Prophylactic antibiotics in the form of Cefazolin were administered. 1g of Tranxemic Acid was given intravenously within 30 minutes of incision. The left leg was then prepped with Chloraprep and draped in a standard fashion with impervious stockinette. A second prep with Chloraprep was performed prior to application of Iodine impregnated skin protection. A timeout to confirm correct identity, side and site, procedure, allergies, anesthesia, and medical concerns was performed. With the knee in some flexion, a midline incision was made overlying the knee. Full thickness skin flaps were raised once the extensor mechanism was encountered. These were raised medially and laterally. Any bleeding was controlled with electrocautery. Once the extensor mechanism was fully exposed, a medial parapatellar arthrotomy was performed in a flexed position. All bleeding from the arthrotomy and the geniculate arteries was coagulated. A medial subperiosteal peel was performed with electrocautery to the midcoronal plane. The fat pad was removed while keeping the patellar tendon protected. The anterior distal femur synovium was removed for later visualization. The ACL and PCL were resected and the anterior horn of the lateral meniscus was transected. The knee was then flexed with the patella everted. Large osteophytes from the tibia were removed. Large osteophytes from the femur were removed. Using a step drill, and based on preoperative templating, the femoral canal was entered. This was done with a step drill without any difficulty. The intramedullary distal femoral cut guide was inserted, set to a 5 degree valgus cut and 8mm cut thickness. The distal femoral cut guide was then held in position and pinned. With the soft tissues protected, the distal cut was performed. This was passed over a few times to ensure a planar cut. I then turned attention to the tibia. The extramedullary guide was placed onto the leg. The distal aspect was slid medial to adjust for position of center of ankle and stay in line with shaft of the tibia. Approximately 3-5 degrees of posterior slope was kept in the proximal cutting guide. The center of the guide was aligned with the PCL. The stylus was used to assess cut thickness. The medial side, most involved side, was set for a 6mm cut. This was then held in position and pinned into place with 2 additional pins and a cross pin for stability. The medial and lateral collateral ligaments were protected and the cut was performed. With this completed, it was assessed and noted to be of appropriate dimensions. The guide was removed. A spacer block was inserted and the knee was brought into extension. The 6mm spacer block provided full extension, without hyperextension and with stability of both the medial and lateral collateral ligaments was assessed. The pins from the femur and the tibia were then removed. The distal femur was then sized. The anterior stylus was placed onto the lateral ridge of the anterior femur. This indicated a size 6 femur. The external rotation of the guide was adjusted to 3 degrees to match the epicondylar axis, perpendicular to [place]?s line. The 4-in-1 cutting guide was the placed. The posterior medial femur cut was evaluated and appeared of good thickness. The spacer block was inserted underneath the cutting guide and stability was confirmed in 90 degrees of flexion. An shakira wing was used to confirm appropriate position of the anterior cut to avoid notching. This cutting guide was ensured to be flush on the cut surface and then pinned into place with headed pins. While protecting the soft tissues, quad tendon, and collateral ligaments, the anterior and posterior cuts were performed with a saw. The central two pins were removed and the posterior and anterior chamfers were cut next. The notch-cutting guide was placed. This was pinned to lateralize the femoral component as much as possible while keeping it flush on the cut surface. This was then pinned into position. A reciprocating saw was used to make the notch cut. A rasp smoothed the cut surfaces. The medial and lateral menisci were removed. A trial femoral component was then inserted, impacted down to the cut surfaces, and the lug holes were drilled. A provisional trial tibial component was placed and the knee was brought through range of motion. There was noted to be excellent extension and flexion. There was no significant instability. The patella was tracking without thumbs. A size 6mm polyethylene component provided the best range of motion and stability with less than 2mm gapping with medial and lateral stress and full extension without significant hyperextension. The tibial cut surface was fully exposed. The tibia was then sized as a 5. The tibia had been previously marked during trialing to correspond to the center of the tibial component to help with rotation. The trial was aligned to this christina, approximately rotated to the medial 1/3rd of the tibial tubercle. The trial was pinned into place. The tibia was prepared with a reamer and a keel punch and lug holes. The trial components were removed. The final components were opened on the back table. The periosteal and capsular tissues, especially posteriorly, around the knee were then systematically injected with a periarticular cocktail consisting of 246mg of Ropivacaine, 0.5mg of Epinephrine, 0.08mg of Clonidine, and 30mg of Ketorolac, diluted to 100cc. On the back table, with the implants opened. The cementless knee components were placed. Starting with the tibial component, the tibia was subluxed anteriorly and the lug holes of the component were lined up. The tibia was then impacted with an impactor and mallet until the tibial component was in contact with the tibia. Then, the femoral component was inserted. The lug holes were aligned and the component was impacted into position. The final polyethylene component was inserted. The knee was irrigated with Surgiphor Betadine solution. This was allowed to sit in the knee for 3 minutes and then it was irrigated out with saline. I then performed a complete synovectomy around the patella and removed any lateral facet prominence. The patella was tracking with a no-thumbs technique. The capsule was then reapproximated with a No. 1 Vicryl at multiple locations. The capsule was finally closed with a No. 2 Stratafix, barbed suture. Deep tissues were then reapproximated with 0 Vicryl and 2-0 Vicryl. The skin was closed with a running 3-0 Monocryl in a subcuticular fashion. This was reinforced with skin glue. A Mepilex silver dressing was applied along with a [id number] NATHANIEL wrap. A CryoCuff was applied. Zoe was transferred to the hospital bed without difficulty an suffering no apparent complication. Zoe has a good prognosis. Physical therapy will start today and without restrictions, weight-bearing as tolerated. Aspirin 81mg BID will be used for DVT prophylaxis. Date of Procedure: 10/18/24
[2024-10-18] MEDS: fentaNYL 100 MCG/2 ML VIAL IVP ×2 (11:01→11:11)
--- NOTE | 2024-10-18 11:03 | W.ANESPOSTOP ---
Postoperative Evaluation Date, Time and Location Date Performed: 10/18/24 Time Performed: 11:03 Patient Location: PACU Vital Signs Most Recent Imported Vital Signs: Most Recent Vital Signs Temp Pulse Resp BP Pulse Ox 36.6 C 74 11 L 123/60 99 10/18/24 10:55 10/18/24 10:55 10/18/24 10:55 10/18/24 10:55 10/18/24 10:55 Pain Score Most Recent Pain Score: Most Recent Pain Score Pain Level 0 10/18/24 10:55 Assessment Mental Status: Awake (Alert & Oriented to Patient Baseline) Airway and Respiratory Function: Patent airway with normal (patient baseline) respiratory exam Cardiovascular Function: Hemodynamically Stable Hydration Status: Adequately Hydrated Nausea & Vomiting: No Nausea or Vomiting Pain: Pain is tolerable per patient Peripheral Nerve Block: Regional nerve block not resolved at time of post operative discharge
[2024-10-18] MEDS: oxyCODONE 5 MG TAB PO (12:05)
[2024-10-18] MEDS: Tranexamic Acid 650 MG TAB 1300 MG PO (12:06)
--- NOTE | 2024-10-18 13:56 | PT.INIE ---
PT Notes Visit Reasons: Left knee DJD Physical Therapy Day Surgery Initial Evaluation Date: 10/18/2024 Referring Doctor: Sidra Keys APRN; Dr Maya PT Orders: PT CONSULT: s/p Ortho surgery Precautions: WBAT LLE Patient Profile/Admitting Diagnosis: Zoe is a 74 yo female presenting s/p elective Left TKA on 10/18/24. Post op copmlicated by vasovasgal episode. 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 No dysplasia on colposcopy. 2018 NL Pap/negative HPV. 11/2020+ HR HPV. 12/2020 neg colpo biopsy. And repeat Pap 12/2021 ([facility] [place]) ASCUS with + HPV, - HPV 16, - HPV 18.Prolapse of female pelvic organs 10/2021 stage III rectocele stage II cystocele.Intermittent asthma Hyperlipidemia Hypothyroid Diverticulosis Hypertension Menopause DJD (degenerative joint disease) of cervical spine Vitamin B12 deficiency Surgical History (Updated 03/24/24 @ 19:28 by Charla Rowell MD) H/O vaginal hysterectomy History of colposcopy with cervical biopsy 2014, 2016, 2020: Normal cervical biopsy. Social History/Home Situation: Patient resides in a single-family home with her 3 steps to enter with grab bar at entryway through [facility]. Patient is independent with ambulation, ADLs, shopping, meal prep, driving, home management. Has been available to help with home management meal prep shopping and transportation as needed Equipment Owned/DME: cane,RTS, Pt issued and fitted for FWW from [facility] Subjective: Patient reports she is feeling well and eager to get moving so she can return home Objective: [] General Observation: Female presented semireclined on stretcher with Cryo/Cuff to left knee. Has been present Mental Status: Alert and oriented x 4, able to follow instructions, agreeable to participate Pain: 3/10 Vital signs monitored by nursing throughout ROM: [] BUE WNL Right Lower Extremity: WNL Left Lower Extremity: Hip and ankle WNL, knee 0-94degrees ( pt hesitant to move knee) Strength: [] BUE: 5/5 Right Lower Extremity:5/5 Left Lower Extremity: Hip flexion: 3 -/5; hip abduction: 3 -/5; hip extension: 3 -/5; knee extension: 3 -/5; knee flexion: 2+/5 ankle DF: 3/5 ; ankle PF: 3/5 Sensation: Intact Bed Mobility/Transfers: [] Supine to sit CGA with FWW Sit to stand CGA Stand to sit [] CGA Bed to chair CGA Gait: Ambulated 45 feet with FWW with contact-guard assist with cues to activate knee extension/quad during mid stance/weightbearing of left lower extremity and 2 episodes of knee instability which patient was able to stabilize without external support. Stairs: 5 steps with rail contact-guard assist step to pattern cues for sequencing. 1 rail utilized to simulate grab bar to enter home Balance: [] Static Sitting: Good Dynamic Sitting: Fair Static Standing: Fair plus Dynamic Standing: Fair Special Tests: [] Mobility Limitations Standardized Measure [] [facility] 6 clicks Basic Mobility Inpatient Short Form: [] Raw Score: 19 CMS Score: 41.77% Informed Consent/Education: Patient instructed in purpose of PT consult. Treatment: 96781 packet containing TKA exercise protocol has been given to patient. Education and training on initial set of exercises that can be done at home have been completed with patient. 52782: stair and gait training level surfaces with FWW 100 feet with reciprocal pattern intermittent cue for quad activation. stair training with rail to simulate grab bar to enter her home and cane CGA . able to provide CGA. Assessment: While ambulating, patient noted increased lightheadedness patient returned to sitting position on wheelchair nursing notified taking vital signs when patient had vasovagal episode MD present. Patient regained level of alertness and patient assisted to stretcher with assist of 2. Nursing remained with patient. Patient reapproached for continuation of evaluation including stair assessment approximately 1 hour and 45 minutes later. Patient was able to participate in rest of evaluation with findings as noted below Patient presents with clinical signs and symptoms consistent with current/admitting diagnoses that have resulted to mobility limitations, gait instability, generalized weakness, and impairment of motor control as demonstrated by the following impairment level findings: 1. Decreased strength to left knee major muscle groups 2. Impaired standing balance 3. Limitation of joint range of motion in left knee 4. Impaired functional activity tolerance Impairments are contributing to the following functional limitations: 1. Inability to safely ambulate without assistive device 2. Increase completion time for mobility ADL performance 3. Increased fall risk 4. Difficulty performing stairs without assistance Patient is assessed as a moderate complexity based on the following: History: 74-year-old female with impairment level findings, functional limitations, and past medical history as indicated above Examination: Demonstrable impairment in strength, balance, and mobility level with underlying impairments and functional limitations as documented above Presentation: evolving Decision Making: moderate Goals: N/A. PT evaluation and 1-2 treatment sessions only for functional mobility training using recommended AD and for HEP instruction. Plan of Care/Treatment Plan: N/A. PT evaluation and 1-2 treatment session only for functional mobility training using recommended AD and for HEP instruction. DISCHARGE RECOMMENDATIONS: Home with HEP and Outpatient PT as scheduled. TREATMENT CODE/TIME: 55013, 01600,66894/ [id number]; [id number] Thank you for the opportunity to participate in the care of this patient. Kerry Mendoza, PT [facility]
== END 2024-10-18 15:45 | disposition home or self-care (01) ==
PROVIDERS: PCP Family Medicine; Visit Provider Student in an Organized Health Care Education/Training Program
PROC: (CPT 27447; principal; 2024-10-18 09:30)
DX: M17.12 Unilateral primary osteoarthritis, left knee (principal); G89.18 Other acute postprocedural pain
CPT/HCPCS: 27447; 64447; 64450; 97110; 97116; 97162; C1776; J0665; J0690; J1100; J2401; J2405; J2704; J3010

== ENCOUNTER 2024-11-03 13:55 | Outpatient (CLI) | payer MEDICARE, SELFPAY ==
--- NOTE | 2024-11-03 14:04 | DI.RAD_ITS ---
Exam(s) XR KNEE LT 1V EXAM: XR KNEE LT 1V CLINICAL HISTORY: 1ST POST OP S/P L TKA. TECHNIQUE: 2D digital imaging was performed. COMPARISON: CR XR KNEE LT 1V from 10/07/2024 CR XR STANDING ALIGNMENT from 11/03/2024 FINDINGS: Single lateral view of the left knee: Position alignment of the components of the recently placed prosthesis are satisfactory. No fracture or loosening evident on this single lateral view. IMPRESSION: Satisfactory appearance on the single view. DATA REPOSITORY: RADIATION DOSE DELIVERED:
--- NOTE | 2024-11-03 14:04 | DI.RAD_ITS ---
Exam(s) XR STANDING ALIGNMENT EXAM: XR STANDING ALIGNMENT CLINICAL HISTORY: 1ST POST OP S/P L TKA. TECHNIQUE: 2D digital imaging was performed. COMPARISON: CR XR STANDING ALIGNMENT from 10/07/2024 FINDINGS: 3 views There has been interval placement of a left knee prosthesis which appears satisfactory. No fracture or loosening evident. Moderate degenerative changes in the opposite-right knee are again noted invol ving medial lateral compartments. Both hips appear unremarkable as do the ankles. No osseous lesion s. Bone density normal. SI joints unremarkable. IMPRESSION: As above. DATA REPOSITORY: RADIATION DOSE DELIVERED:
== END 2024-11-03 13:56 | disposition home or self-care (01) ==
LOC: DIORS 13:56
PROVIDERS: PCP Family Medicine; Referring Provider Family Medicine; Visit Provider Physician Assistant
DX: Z96.652 Presence of left artificial knee joint (principal); Z47.1 Aftercare following joint replacement surgery
CPT/HCPCS: 99024; 73560; 77073

== ENCOUNTER → 2024-12-01 13:54 | Outpatient (BNVA) | payer MEDICARE, SELFPAY | PROVIDERS: PCP Family Medicine; Referring Provider Family Medicine; Visit Provider Physician Assistant | DX: Z47.1 Aftercare following joint replacement surgery (principal); Z96.652 Presence of left artificial knee joint | CPT/HCPCS: 99024 ==

== ENCOUNTER → 2025-01-13 10:51 | Outpatient (BNVA) | payer MEDICARE, SELFPAY | PROVIDERS: PCP Family Medicine; Referring Provider Family Medicine; Visit Provider Physician Assistant | DX: Z47.1 Aftercare following joint replacement surgery (principal); Z96.652 Presence of left artificial knee joint | CPT/HCPCS: 99024 ==

== ENCOUNTER 2025-01-26 18:08 | Outpatient (REF) | payer MEDICARE, SELFPAY ==
[2025-01-26 17:06] LABS: TSH 1.07 uIU/mL (0.36-3.74)
[2025-02-02 11:41] LABS: Intrinsic Factor Blocking Ab Positive (Negative)
== END 2025-01-26 18:09 | disposition home or self-care (01) ==
LOC: NCHCN 18:08
PROVIDERS: PCP Family Medicine; Visit Provider Family Medicine
DX: E03.9 Hypothyroidism, unspecified (principal); E53.9 Vitamin B deficiency, unspecified
CPT/HCPCS: 84443; 86340

== ENCOUNTER 2025-03-21 13:22 | Outpatient (REF) | payer MEDICARE, SELFPAY ==
--- NOTE | 2025-03-21 13:40 | PAPFT_PTH ---
PATIENT: Zoe Yuen LOC: [facility]#:[id number] AGE/SX: 74/F ROOM: RE03/21/[address]: Hellen Pool DO : 1950 BED: DIS: 03/21/2025 SPEC #: [id number] RECD: 03/21/25 17:23 STATUS: MARCO REQ #: [id number] TOBY: 03/21/25 13:[address]: Hellen Pool DEPT: [facility] Cytology RECD BY: Maisha Bauer ENTERED: 03/21/25 17:24 SP TYPE: PAPFT OTHR DR: Toby Harris Tissues: 1 - CX/ENDOCX FOR PAP SMEARS Procedures: PAP THIN PREP/[facility] Screening HPV DNA PROBE Comments: [id number] (HPV 16 & 18/45)
== END 2025-03-21 13:23 | disposition home or self-care (01) ==
LOC: LBN 13:22
PROVIDERS: PCP Family Medicine; Visit Provider Obstetrics & Gynecology
DX: Z12.4 Encounter for screening for malignant neoplasm of cervix (principal)
CPT/HCPCS: 88142; 87624

== ENCOUNTER 2025-03-23 05:39 | Outpatient (CLI) | payer MEDICARE, SELFPAY ==
--- NOTE | 2025-03-23 10:30 | DI.MAMMO_ITS ---
Exam(s) MAMMO SCREENING EXAM: MAMMO SCREENING CLINICAL HISTORY: screening TECHNIQUE: Mammograms were interpreted according to the usual protocol including computer analysis with CAD system, tomosynthesis and C-view imaging. COMPARISON: 2015 through 2023 FINDINGS: The breasts are composed of mainly fatty density , Breast Density category A. No suspicious masses or suspicious microcalcifications are seen. No skin thickening or abnormal axillary lymph nodes are seen. There has been no significant change from prior exams. IMPRESSION: BI-RADS Category 1, Negative mammogram Yearly screening mammography is recommended. Breast Density- Category A - The breast are almost entirely fatty. Breast density Category C or D implies that the patient has dense breast tissue. Dense breast tissue can make it harder to find cancer on a mammogram. Dense breast tissue is also associated with an increased risk of breast cancer. This information about the result of the mammogram report was provided to the patient to raise their awareness. Use this report when you speak with the patient about their risks for breast cancer, which includes their family history. At that time, you may recommend additional screening tests (Ultrasound or MRI) as these tests may add significant information. A negative radiographic report should not delay biopsy if a dominant or clinically suspicious mass is present. Up to ten percent of cancers are not identified on mammography. A negative report may reinforce clinical impression. Adenosis and dense breasts may obscure an underlying neoplasm. False positive reports average 6 to 10%. Patient will receive a letter notifying them of these results.
== END 2025-03-23 05:59 ==
LOC: DI 05:39
PROVIDERS: PCP Family Medicine; Visit Provider Obstetrics & Gynecology
DX: Z12.31 Encounter for screening mammogram for malignant neoplasm of breast (principal); R92.313 Mammographic fatty tissue density, bilateral breasts
CPT/HCPCS: 77063; 77067